=== PATIENT | female | born 1995 | race Caucasian/White ===

== ENCOUNTER 2018-03-19 14:17 | Emergency (ER) | payer BC ==
[~2018-03-19] VITALS: Ht 172.7 cm; Wt 71.3 kg
[2018-03-19 14:22] VITALS: BP 133/76; TEMP 98.6
[2018-03-19] MEDS ORDERED: ALDACTONE50 MG PO (14:30)
[2018-03-19] MEDS ORDERED: NEXPLANON68 MG ID (14:31)
[2018-03-19 15:13] LABS: BASO # 0.1 (0.0-0.2); BASO % 0.8 % (0.0-2.0); EOS # 0.1 (0.0-0.7); EOS % 2.1 % (0-4.0); GRAN # 4.1 (1.4-6.5); GRAN % 61.7 % (42.2-75.2); HEMATOCRIT 44.2 % (37.0-47.0); HEMOGLOBIN 15.8 g/dl (12.5-16.0); LYMPH # 1.9 (1.2-3.4); MEAN CELL VOLUME 89 fl (80.0-100.0); MEAN CORPUSCULAR HEMOGLOBIN 32 pg (27.0-31.0); MEAN CORPUSCULAR HGB CONC 36 g/dl (33.0-37.0); MEAN PLATELET VOLUME 9.7 fl (7.4-10.4); MONO # 0.5 (0.1-0.6); MONO % 7.1 % (1.7-9.3); PLATELET COUNT 276 K/mm3 (130-400); RED BLOOD COUNT 4.98 M/mm3 (4.10-5.30); REDCELL DISTRIBUTION WIDTH-CV 11.9 % (11.5-14.5)
[2018-03-19 15:19] LABS: ALANINE AMINOTRANSFERASE 42 U/L (9-52); ALBUMIN 4.7 gm/dL (3.5-5.0); ALKALINE PHOSPHATASE 96 U/L (50-136); ANION GAP 16 mmol/L (7-16); AST,SGOT 30 U/L (15-37); BILIRUBIN,TOTAL 0.8 mg/dL (0.0-1.0); BLOOD UREA NITROGEN 9 mg/dL (7-17); CALCIUM 9.9 mg/dL (8.4-10.2); CARBON DIOXIDE 23 mmol/L (22-30); CHLORIDE 104 mmol/L (98-107); GLUCOSE 90 mg/dL (74-106); LIPASE 72 U/L (23-300); POTASSIUM 4.1 mmol/L (3.4-5.0); SODIUM 144 mmol/L (137-145); TOTAL PROTEIN 8.6 gm/dL (6.4-8.2)
[2018-03-19 15:22] LABS: COLLECTION METHOD CLEAN CATCH
[2018-03-19 15:30] LABS: PH 6 (5-8); SQUAMOUS EPITHELIAL 0-2 /hpf; URINE APPEARANCE Clear; URINE BACTERIA Rare /hpf; URINE BILIRUBIN Negative (NEGATIVE); URINE BLOOD 1+ (NEGATIVE); URINE COLOR Straw; URINE GLUCOSE Negative (NEGATIVE); URINE KETONE Negative (NEGATIVE); URINE LEUKOCYTE ESTERASE Negative (NEGATIVE); URINE NITRATE Negative (NEGATIVE); URINE PROTEIN(semi-quant) Negative (NEGATIVE); URINE RBC 0-2 /hpf; URINE UROBILINOGEN Negative (NEGATIVE)
[2018-03-19 15:59] LABS: C-REACTIVE PROTEIN < 0.5 mg/dL (0.0-0.9)
[2018-03-19] MEDS ORDERED: NORCO 325 MG-51 TAB PO (16:58)
[2018-03-19] MEDS ORDERED: ZOFRAN ODT4 MG PO (16:58)
[2018-03-19] MEDS ORDERED: OMNICEF 300MG300 MG PO (17:15)
[2018-03-19 17:16] VITALS: PULSE 84
== END 2018-03-19 17:17 | disposition home or self-care (01) ==
LOC: COL.ER 14:17
PROVIDERS: Physician Assistant
DX: R10.9 Unspecified abdominal pain (principal); Z90.89 Acquired absence of other organs
CPT/HCPCS: J1885; J2405; J7030

== ENCOUNTER 2021-01-24 21:43 | Emergency (ER) | payer OTHER ==
[~2021-01-24] VITALS: Ht 175.3 cm; Wt 70.5 kg
[~2021-01-24 21:43] MED LIST: ALDACTONE50 MG PO; NEXPLANON68 MG ID; NORCO 325 MG-51 TAB PO; OMNICEF 300MG300 MG PO; ZOFRAN ODT4 MG PO
[2021-01-24 21:51] VITALS: TEMP 98.8
[2021-01-24 23:40] VITALS: BP 126/80; PULSE 71
== END 2021-01-24 23:40 | disposition home or self-care (01) ==
LOC: COL.ER 21:43
DX: S76.012A Strain of muscle, fascia and tendon of left hip, initial encounter (principal); S50.12XA Contusion of left forearm, initial encounter; W10.9XXA Fall (on) (from) unspecified stairs and steps, initial encounter

== ENCOUNTER 2023-11-10 07:18 | Day surgery (SDC) | payer BC ==
[~2023-11-10] VITALS: Ht 175.3 cm; Wt 68.4 kg
[~2023-11-10 07:18] MED LIST changes: +ALDACTONE 25MG25 M1 PO; -ALDACTONE50 MG PO; +IBU600 MG PO; +IMODIUM A-D2 MG PO; +INDERAL60 MG PO; +LR 1,000 ML IV SCH; +Ondansetron 4 MG/2 ML VIAL IV PRN; +PRIL40 PO; +TYLENOL 500MG500 MG PO; +ZOLOFT 50MG50 MG PO
[2023-11-10 07:37] VITALS: BP 111/78; PULSE 90; TEMP 97.6
[2023-11-10] MEDS ORDERED: ELURYNG VAGINA1 EACH VG (07:55)
[2023-11-10] MEDS ORDERED: ADDERALL XR20 MG PO (07:56)
[2023-11-10] MEDS ORDERED: QUVIVIQ PO (07:56)
[2023-11-10] MEDS ORDERED: ZANAFLEX CAPSULE6 MG PO (07:57)
--- NOTE | 2023-11-10 08:17 | NUR ---
The patient ambulated back to [facility] independently using a steady gait and appeared to tolerate the activity well. Vital signs obtained. Consent signed. 20G IV started in right hand with one stick, LR infusing without difficulty. Urine HCG obtained with a negative result. Assessment completed. Warm blanket provided. Filipe Go, brought back to be at her bedside. Call light is within reach. The patient denies any further needs at this time.
[2023-11-10] MEDS ORDERED: Lidocaine PF 2% (20 MG/ML) 5 ML VIAL ONE (12:00)
[2023-11-10 12:30] VITALS: BP 102/77; PULSE 87; TEMP 97.3
[2023-11-10 12:45] VITALS: BP 105/72; PULSE 75
[2023-11-10 13:00] VITALS: BP 113/81; PULSE 73
--- NOTE | 2023-11-10 13:16 | NUR ---
1230-Pt arrived via cart to [facility] , pt ambulated with assistance to recliner. Warm blanket provided. Vital signs taken, vss. Pt denies nausea or pain at this time. Report obtained from [facility]. Pt offered po intake at this time. Update provided to patient and/or family. 1245-Pt tolerating po intake well, denies complaints. VSS. 1255-Provider at bedside, procedure and plan of care reviewed, questions invited. 1305-VSS. Discharge instructions reviewed with pt, questions invited. IV site discontinued, tip intact. Pressure held and bandage applied. Pt dressed into personal clothing. 1313-Pt discharged home to [facility] via wheelchair, accompanied by family. All belongings and discharge instructions sent with pt.
== END 2023-11-10 13:13 | disposition home or self-care (01) ==
LOC: SDCO 07:18
DX: K29.50 Unspecified chronic gastritis without bleeding (principal); K31.A0 Gastric intestinal metaplasia, unspecified; K52.9 Noninfective gastroenteritis and colitis, unspecified; R19.4 Change in bowel habit; R19.5 Other fecal abnormalities
CPT/HCPCS: J2704; J7120